=== PATIENT | female | born 1930 | race Caucasian/White ===

== ENCOUNTER 2018-06-23 05:26 | Inpatient (IN) | payer MEDICARE, BC ==
[~2018-06-23] VITALS: Ht 149.9 cm; Wt 54.9 kg
[2018-06-23] MEDS ORDERED: AMLO5TAB7 PO (05:39)
[2018-06-23] MEDS ORDERED: GABA-532 PO (05:39)
[2018-06-23] MEDS ORDERED: METO25TA6 PO (05:39)
[2018-06-23] MEDS ORDERED: ZOLPIDEM 5 MG TABLET PO PRN (06:30)
[2018-06-23] MEDS ORDERED: MAG HYDROX/AL HYDROX/SIMETH 30 ML LIQUID UDC PO PRN (06:30)
[2018-06-23] MEDS ORDERED: MAGNESIUM HYDROXIDE 30 ML LIQUID UDC PO PRN (06:30)
[2018-06-23] MEDS ORDERED: LORAZEPAM 0.5 MG TABLET PO PRN (06:30)
[2018-06-23 06:31] VITALS: BP 172/80
[2018-06-23 07:30] VITALS: BP 137/72
[2018-06-23] MEDS ORDERED: METOPROLOL TARTRATE 25 MG TABLET PO SCH (09:00)
[2018-06-23] MEDS ORDERED: METO-356 PO (09:05)
[2018-06-23] MEDS: METOPROLOL SUCCINATE XL 25 MG TAB.SR.24H PO SCH (09:14)
[2018-06-23] MEDS: GABAPENTIN 100 MG CAPSULE PO SCH ×2 (09:15→17:19)
[2018-06-23] MEDS: AMLODIPINE 5 MG TABLET PO SCH ×2 (09:15→17:20)
[2018-06-23] MEDS ORDERED: METOPROLOL SUCCINATE XL 25 MG TAB.SR.24H PO SCH (09:15)
[2018-06-23 16:02] VITALS: BP 136/80
[2018-06-23 19:30] VITALS: BP 123/60
[2018-06-23] MEDS: QUETIAPINE FUMARATE 25 MG TABLET PO SCH (20:43)
[2018-06-24 07:19] LABS: BASOPHILS % (AUTO) 0.5 % (0.0-2.0); EOSINOPHILS # (AUTO) 0.2 K/uL (0.0-0.7); EOSINOPHILS % (AUTO) 2.6 % (0.0-7.0); HEMATOCRIT 42.1 % (31.2-41.9); HEMOGLOBIN 14.2 g/dL (10.9-14.3); LYMPHOCYTES # (AUTO) 1.2 K/uL (20.0-40.0); MEAN CORPUSCULAR HGB CONC 34 g/dL (32.3-35.6); MEAN CORPUSCULAR VOLUME 91.9 fL (75.5-95.3); MONOCYTES # (AUTO) 0.6 K/uL (2.0-10.0); MONOCYTES % (AUTO) 7.9 % (0.0-11.0); NEUTROPHILS # (AUTO) 5.3 K/uL (1.8-8.9); PLATELET COUNT (AUTO) 198 K/uL (179-408); RED BLOOD CELL COUNT(AUTO) 4.58 MIL/uL (3.63-4.92); WHITE BLOOD COUNT (AUTO) 7.3 K/uL (3.8-11.8)
[2018-06-24 07:30] VITALS: BP 129/69
[2018-06-24 07:52] LABS: ALANINE AMINOTRANSFERASE 14 U/L (14-59); ALKALINE PHOSPHATASE 63 U/L (50-136); ASPARTATE AMINOTRANSFERASE 15 U/L (15-37); BILIRUBIN,TOTAL 0.6 mg/dL (0.2-1.0); CARBON DIOXIDE 31 mmol/L (21-32); CHLORIDE 107 mmol/L (98-107); CHOLESTEROL 145 mg/dL (<200); CREATININE 0.7 mg/dL (0.6-1.3); GLUCOSE 87 mg/dL (74-106); HDL CHOLESTEROL 57 mg/dL (40-60); PHOSPHOROUS 3.7 mg/dL (2.5-4.9); POTASSIUM 3.7 mmol/L (3.5-5.1); TOTAL PROTEIN, SERUM 6.1 g/dL (6.4-8.2); TRIGLYCERIDES 64 MG/DL (30-150); UREA NITROGEN, BLOOD 18 mg/dL (7-18)
[2018-06-24 07:53] LABS: THYROID STIMULATING HORMONE 1.898 mIU/mL (0.358-3.740)
[2018-06-24] MEDS: GABAPENTIN 100 MG CAPSULE PO SCH ×2 (08:23→16:33)
[2018-06-24] MEDS: METOPROLOL SUCCINATE XL 25 MG TAB.SR.24H PO SCH (08:25)
[2018-06-24] MEDS: AMLODIPINE 5 MG TABLET PO SCH ×2 (08:25→16:36)
[2018-06-24 16:03] VITALS: BP 99/49
[2018-06-24 17:34] LABS: *BILIRUBIN,URIN NEGATIVE (NEGATIVE); *BLOOD, URINE Trace-lysed (NEGATIVE); *CLARITY,URINE CLEAR (CLEAR); *COLOR,URINE YELLOW (YELLOW); *KETONES,URINE NEGATIVE (NEGATIVE); *PROTEIN,URINE NEGATIVE (NEGATIVE); *UROBILINOGEN,URINE 0.2 E.U./dl (NORMAL); LEUKOCYTE ESTERASE ,URINE TRACE (NEGATIVE); NITRITE, URINE NEGATIVE (NEGATIVE); PH,URINE 5.5 (5.0-8.0); UGLUCOSE NEGATIVE (NEGATIVE)
[2018-06-24 17:40] LABS: BACTERIA,URINE MODERATE /HPF (NONE SEEN); SQUAMOUS EPITHELIAL CELL,UR MODERATE /HPF (NONE SEEN)
[2018-06-24 20:38] VITALS: BP 114/58
[2018-06-24] MEDS: ACETAMINOPHEN 325 MG TABLET PO PRN (21:01)
[2018-06-24] MEDS: QUETIAPINE FUMARATE 25 MG TABLET PO SCH (21:01)
[2018-06-25] MEDS: ACETAMINOPHEN 325 MG TABLET PO PRN ×3 (06:37→20:15)
[2018-06-25 07:30] VITALS: BP 112/54
[2018-06-25] MEDS: AMLODIPINE 5 MG TABLET PO SCH ×2 (08:15→16:10)
[2018-06-25] MEDS: GABAPENTIN 100 MG CAPSULE PO SCH ×2 (08:15→16:10)
[2018-06-25] MEDS: METOPROLOL SUCCINATE XL 25 MG TAB.SR.24H PO SCH (08:16)
[2018-06-25 16:00] VITALS: BP 112/65
[2018-06-25] MEDS: QUETIAPINE FUMARATE 25 MG TABLET PO SCH (20:10)
[2018-06-25 20:36] VITALS: BP 118/72
[2018-06-26 07:30] VITALS: BP 116/58
[2018-06-26] MEDS: METOPROLOL SUCCINATE XL 25 MG TAB.SR.24H PO SCH (08:56)
[2018-06-26] MEDS: AMLODIPINE 5 MG TABLET PO SCH ×2 (08:57→16:52)
[2018-06-26] MEDS: GABAPENTIN 100 MG CAPSULE PO SCH ×2 (08:57→16:51)
[2018-06-26 16:09] VITALS: BP 126/67
[2018-06-26 20:33] VITALS: BP 121/61
[2018-06-26] MEDS: CEPHALEXIN MONOHYDRATE 250 MG CAPSULE PO SCH (21:10)
[2018-06-26] MEDS: QUETIAPINE FUMARATE 25 MG TABLET PO SCH (21:10)
[2018-06-27] MEDS: CEPHALEXIN MONOHYDRATE 250 MG CAPSULE PO SCH ×4 (06:00→21:27)
[2018-06-27 07:30] VITALS: BP 120/64
[2018-06-27] MEDS: GABAPENTIN 100 MG CAPSULE PO SCH ×2 (08:09→16:11)
[2018-06-27] MEDS: METOPROLOL SUCCINATE XL 25 MG TAB.SR.24H PO SCH (08:30)
[2018-06-27] MEDS: AMLODIPINE 5 MG TABLET PO SCH ×2 (08:30→16:11)
[2018-06-27 16:00] VITALS: BP 139/71
[2018-06-27] MEDS ORDERED: IBUPROFEN 200 MG TABLET PO PRN (17:15)
[2018-06-27 20:00] VITALS: BP 137/77
[2018-06-27] MEDS: QUETIAPINE FUMARATE 25 MG TABLET PO SCH (20:13)
[2018-06-28] MEDS: CEPHALEXIN MONOHYDRATE 250 MG CAPSULE PO SCH ×3 (06:01→21:24)
[2018-06-28 08:00] VITALS: BP 130/64
[2018-06-28] MEDS: GABAPENTIN 100 MG CAPSULE PO SCH ×2 (08:50→16:51)
[2018-06-28] MEDS: AMLODIPINE 5 MG TABLET PO SCH ×2 (08:51→16:52)
[2018-06-28] MEDS: METOPROLOL SUCCINATE XL 25 MG TAB.SR.24H PO SCH (08:51)
[2018-06-28 16:26] VITALS: BP 136/66
[2018-06-28 20:00] VITALS: BP 149/76
[2018-06-28] MEDS: QUETIAPINE FUMARATE 25 MG TABLET PO SCH (21:24)
[2018-06-29] MEDS: CEPHALEXIN MONOHYDRATE 250 MG CAPSULE PO SCH ×3 (06:11→21:13)
[2018-06-29 07:30] VITALS: BP 121/69
[2018-06-29] MEDS: GABAPENTIN 100 MG CAPSULE PO SCH ×2 (09:19→17:11)
[2018-06-29] MEDS: METOPROLOL SUCCINATE XL 25 MG TAB.SR.24H PO SCH (09:20)
[2018-06-29] MEDS: AMLODIPINE 5 MG TABLET PO SCH ×2 (09:20→17:12)
[2018-06-29 16:28] VITALS: BP 110/56
[2018-06-29 20:17] VITALS: BP 164/88
[2018-06-29 20:35] VITALS: BP 147/73
[2018-06-29] MEDS: ACETAMINOPHEN 325 MG TABLET PO PRN (21:13)
[2018-06-29] MEDS: QUETIAPINE FUMARATE 25 MG TABLET PO SCH (21:13)
[2018-06-30] MEDS: CEPHALEXIN MONOHYDRATE 250 MG CAPSULE PO SCH (05:57)
[2018-06-30 07:40] LABS: BASOPHILS % (AUTO) 0.7 % (0.0-2.0); EOSINOPHILS # (AUTO) 0.2 K/uL (0.0-0.7); EOSINOPHILS % (AUTO) 3.6 % (0.0-7.0); HEMATOCRIT 40.1 % (31.2-41.9); HEMOGLOBIN 13.7 g/dL (10.9-14.3); LYMPHOCYTES # (AUTO) 1.4 K/uL (20.0-40.0); LYMPHOCYTES % (AUTO) 25.1 % (20.5-51.5); MEAN CORPUSCULAR HEMOGLOBIN 31.2 uug (24.7-32.8); MEAN CORPUSCULAR HGB CONC 34 g/dL (32.3-35.6); MEAN CORPUSCULAR VOLUME 91.5 fL (75.5-95.3); MONOCYTES # (AUTO) 0.5 K/uL (2.0-10.0); MONOCYTES % (AUTO) 8.8 % (0.0-11.0); NEUTROPHILS # (AUTO) 3.4 K/uL (1.8-8.9); NEUTROPHILS % (AUTO) 61.8 % (38.5-71.5); PLATELET COUNT (AUTO) 168 K/uL (179-408); RED BLOOD CELL COUNT(AUTO) 4.39 MIL/uL (3.63-4.92); WHITE BLOOD COUNT (AUTO) 5.4 K/uL (3.8-11.8)
[2018-06-30 08:02] LABS: ALANINE AMINOTRANSFERASE 15 U/L (14-59); ALKALINE PHOSPHATASE 65 U/L (50-136); ASPARTATE AMINOTRANSFERASE 18 U/L (15-37); BILIRUBIN,TOTAL 0.5 mg/dL (0.2-1.0); CARBON DIOXIDE 29 mmol/L (21-32); CHLORIDE 105 mmol/L (98-107); CREATININE 0.8 mg/dL (0.6-1.3); GLUCOSE 85 mg/dL (74-106); PHOSPHOROUS 3.6 mg/dL (2.5-4.9); POTASSIUM 3.7 mmol/L (3.5-5.1); TOTAL PROTEIN, SERUM 6.4 g/dL (6.4-8.2); UREA NITROGEN, BLOOD 25 mg/dL (7-18)
[2018-06-30] MEDS: AMLODIPINE 5 MG TABLET PO SCH (08:33)
[2018-06-30] MEDS: GABAPENTIN 100 MG CAPSULE PO SCH (08:33)
[2018-06-30] MEDS: METOPROLOL SUCCINATE XL 25 MG TAB.SR.24H PO SCH (08:34)
[2018-06-30 08:49] VITALS: BP 127/70
== END 2018-06-30 10:00 | disposition home or self-care (01) | DRG 885 ==
LOC: ER 05:29 → GPS 05:59
PROVIDERS: ADMIT Psychiatry & Neurology Psychiatry; ATTEND Registered Nurse
DX: F23 Brief psychotic disorder (principal); N39.0 Urinary tract infection, site not specified; B96.4 Proteus (mirabilis) (morganii) as the cause of diseases classified elsewhere; G62.9 Polyneuropathy, unspecified; F03.90 Unspecified dementia, unspecified severity, without behavioral disturbance, psychotic disturbance, mood disturbance, and anxiety; I70.0 Atherosclerosis of aorta; F41.8 Other specified anxiety disorders; Z79.899 Other long term (current) drug therapy; I10 Essential (primary) hypertension; M54.5 Low back pain
CPT/HCPCS: 36415; 70030-TC; 71045; 83735; 84100; 84443; 85025; 87077; 87086; 97110; 97116; 97530; A4663